=== PATIENT | male | born 1955 | race Hispanic/Latino ===

== ENCOUNTER → 2019-01-09 | Outpatient (CLI) | payer OTHER, MEDICARE ==
[2019-01-09 13:13] LABS: INR 1.08 (0.85-1.15); PARTIAL THROMBOPLASTIN TIME 27.7 SEC (26.3-35.5); PROTHROMBIN TIME 11.3 SEC (9.6-11.6)
--- NOTE | 2019-01-09 13:30 | NUR ---
CX LEFT THORACENTESIS PER PT,HIS DAUGHTER AND PT TOOK CLOPIDROGEL AND ASPIRIN TODAY. WHEN PT SIGNING CONSENT THEY ASKED IF PT WILL BLEED AND I TOLD THEM IT WAS ONE OF THE RISKS OF THE PROCEDURE. PER SHE STATED JAVIER WHYTE HAD TOLD THEM THAT THIS PROCEDURE COULD BE DONE NEXT WEEK IF THE RADIOLOGIST WANTED TO HOLD THE PLAVIX AND ASPIRIN. PT AAOX3 SHOWS NO SIGNS OF RESPIRATORY DISTRESS. DR. WHITTAKER IN TO SPEAK TO PT, AND DAUGHTER. QUESTIONS AND CONCERNS ON RISK OF BLEEDING DUE TO BEING ON BLOOD THINNER. PER PT DAUGHTER AND HIS THEY PREFER TO WAIT UNTIL SATURDAY TO MINIMIZE THE RISK OF BLEEDING. PT INSTRUCTED TO HOLD ASPIRIN AND PLAVIX FOR SATURDAY AND SATURDAY AND BE BACK ON SATURDAY FOR PROCEDURE AT 8 AM. PT AND DAUGHTER AGREED AND VERBALIZED UNDERSTANDING AND AGREED TO COME BACK SATURDAY TO GET LEFT THORACENTESIS DONE. VS 122/86, R 20,02 SAT 97% AT ROOM AIR, P115. PT LEFT AMBULATING WITH FAMILY.
== END | disposition home or self-care (01) ==
LOC: RAH 12:46
PROVIDERS: ATTEND Internal Medicine Cardiovascular Disease
DX: J90 Pleural effusion, not elsewhere classified (principal); I25.10 Atherosclerotic heart disease of native coronary artery without angina pectoris; Z95.1 Presence of aortocoronary bypass graft
CPT/HCPCS: 36415; 85610; 85730

== ENCOUNTER → 2019-01-12 | Outpatient (CLI) | payer OTHER, MEDICARE | END | disposition home or self-care (01) | LOC: LAB 09:55 | PROVIDERS: ATTEND Internal Medicine Cardiovascular Disease | DX: I25.10 Atherosclerotic heart disease of native coronary artery without angina pectoris (principal); I35.0 Nonrheumatic aortic (valve) stenosis; Z95.1 Presence of aortocoronary bypass graft | CPT/HCPCS: 36415; 82565; 84520 ==

== ENCOUNTER → 2019-01-12 | Outpatient (CLI) | payer OTHER, MEDICARE ==
[~2019-01-12] MED LIST: IOHEXOL-350 75 ML VIAL IV ONE
--- NOTE | 2019-01-12 09:30 | NUR ---
U/S GD LT THORACENTESIS PROCEDURE PERFORMED BY DR Christen JIMENEZ. PUNCTURE SITE LT POSTERIOR BACK AND PATIENT TOLERATED PROCEDURE WELL. TOTAL REMOVED 1.7 LITERS OF BLOOD TINGED FLUID. END OF PROCEDURE AT 0900. CATHETER REMOVED AND DRESSING APPLIED. NO BLEEDING NOTED. POST CHEST X-RAY TAKEN AND READ BY DR Christen JIMENEZ. NO PNEUMOTHORAX SEEN. DISCHARGE INSTRUCTIONS GIVEN TO PATIENT AND VERBALIZED UNDERSTANDING. DISCHARGED VIA AMBULATION AT 0930. AAO X3 WITH NO C/O PAIN.
== END | disposition home or self-care (01) ==
LOC: RAH 08:02
PROVIDERS: ATTEND Internal Medicine Cardiovascular Disease
DX: J90 Pleural effusion, not elsewhere classified (principal); J40 Bronchitis, not specified as acute or chronic
CPT/HCPCS: 32555; 71045

== ENCOUNTER → 2019-01-14 | Outpatient (CLI) | payer OTHER, MEDICARE ==
[~2019-01-14] MED LIST changes: +IOHEXOL-350 50ML VIAL IV ONE; -IOHEXOL-350 75 ML VIAL IV ONE; +METOPROLOL TARTRATE 1 MG/ML 5ML VIAL IV ONE
--- NOTE | 2019-01-14 09:00 | NUR ---
CTA ANGIO TARVR PROTOCOL 20G IV PLACED TO LEFT ANTECUBITAL SPACE. HR-110 AND LOPRESSOR 20 MG IV GIVEN FOR DESIRED EFFECT. PATIENT TOLERATED PROCEDURE AND DISCHARGED POST PROCEDURE.
== END | disposition home or self-care (01) ==
LOC: RAH 07:39
PROVIDERS: ATTEND Internal Medicine Cardiovascular Disease
DX: Z13.6 Encounter for screening for cardiovascular disorders (principal); I25.10 Atherosclerotic heart disease of native coronary artery without angina pectoris; K42.9 Umbilical hernia without obstruction or gangrene; J98.11 Atelectasis; I35.0 Nonrheumatic aortic (valve) stenosis; Z95.1 Presence of aortocoronary bypass graft
CPT/HCPCS: 74174; 75574; J3490; Q9967